=== PATIENT | female | born 1945 | race Native Hawaiian/Other Pacific Islander ===

== ENCOUNTER 2022-01-01 15:15 | Inpatient (IN) | payer OTHER ==
[~2022-01-01] VITALS: Ht 162.6 cm; Wt 57.4 kg
[2022-01-01] VITALS (10 sets, daily range): BP systolic 95–141; BP diastolic 46–80; TEMP 97.2–98.4; Ht 162.6 cm; Wt 57.4 kg
[2022-01-01 15:50] LABS: PLATELET COUNT 212 K/uL (152-353)
[2022-01-01 15:57] LABS: POTASSIUM 4.1 mmol/L (3.6-5.2)
[2022-01-02] VITALS (18 sets, daily range): BP systolic 96–121; BP diastolic 43–75; TEMP 97.4–98.2
[2022-01-02 05:18] LABS: PLATELET COUNT 157 K/uL (152-353)
[2022-01-02 05:29] LABS: POTASSIUM 3.3 mmol/L (3.6-5.2)
[2022-01-02] MEDS ORDERED: MACROBID100 MG PO (08:02)
[2022-01-02] MEDS ORDERED: LORA0.5T17 PO (08:02)
[2022-01-02] MEDS ORDERED: GABA300C2 PO (08:03)
[2022-01-02] MEDS ORDERED: CYCL10TA35 PO (08:04)
[2022-01-02] MEDS ORDERED: METO-837 PO (08:05)
[2022-01-02] MEDS ORDERED: BUDE1AER5 INH (08:05)
[2022-01-02] MEDS ORDERED: GABA100C2 PO (08:07)
[2022-01-02] MEDS ORDERED: HYDR25CA25 PO ×2 (08:08→08:09)
[2022-01-02] MEDS ORDERED: CLARITIN10 M1 PO (08:09)
[2022-01-02] MEDS ORDERED: HYDR10TA47 PO (08:10)
[2022-01-03] VITALS (16 sets, daily range): BP systolic 80–121; BP diastolic 49–78; TEMP 97.3–97.8
[2022-01-03 07:23] LABS: PLATELET COUNT 177 K/uL (152-353)
[2022-01-03 07:37] LABS: POTASSIUM 3.9 mmol/L (3.6-5.2)
[2022-01-04] VITALS (9 sets, daily range): BP systolic 93–138; BP diastolic 45–87; TEMP 98–98.3
[2022-01-05 00:25] VITALS: BP 122/61
[2022-01-05 03:00] VITALS: BP 131/53; TEMP 98.3
[2022-01-05 04:46] LABS: PLATELET COUNT 204 K/uL (152-353)
[2022-01-05 05:18] LABS: POTASSIUM 3.5 mmol/L (3.6-5.2)
[2022-01-05 05:55] VITALS: BP 143/68
[2022-01-05 06:49] VITALS: BP 133/78; TEMP 97.5
[2022-01-05 06:54] VITALS: BP 133/78; TEMP 97.5
[2022-01-05 09:00] VITALS: BP 132/76; TEMP 97.5
== END 2022-01-05 10:30 | disposition home or self-care (01) | DRG 310 ==
LOC: ED 15:15 → MED/SURG 17:09
PROVIDERS: ADMIT Hospitalist; ATTEND Internal Medicine Endocrinology, Diabetes & Metabolism
DX: I48.91 Unspecified atrial fibrillation (principal); J44.9 Chronic obstructive pulmonary disease, unspecified; K21.9 Gastro-esophageal reflux disease without esophagitis; E87.6 Hypokalemia; G89.4 Chronic pain syndrome; F41.8 Other specified anxiety disorders; I10 Essential (primary) hypertension; R79.89 Other specified abnormal findings of blood chemistry
CPT/HCPCS: 36415; 80053; 80320; 81000; 82550; 83880; 84439; 84443; 84484; 85027; 85610; 85730; 87088; 87635; 93005; 96374; 96375; 96376; 99284; J0282; J1160; J1650; J1940; J2405; J3490; U0003